=== PATIENT | male | born 1965 | race Caucasian/White ===

== ENCOUNTER 2018-05-21 04:15 | Emergency (ER) | payer SELFPAY, OTHER ==
[2018-05-21] MEDS: HYDROCODONE/APAP (10/325) TAB PO (04:36)
[2018-05-21] MEDS: ONDANSETRON (ODT) 4 MG TAB ODT (04:36)
[2018-05-21] MEDS: ONDANSETRON 4 MG INJ IV (05:10)
[2018-05-21] MEDS: HYDROmorphONE 1 MG/ML SYG IV (05:10)
== END 2018-05-21 05:54 | disposition home or self-care (01) ==
LOC: E/R 04:15
DX: S43.005A Unspecified dislocation of left shoulder joint, initial encounter (principal); X58.XXXA Exposure to other specified factors, initial encounter; Y92.9 Unspecified place or not applicable
CPT/HCPCS: 23650; 73030; 96374; 96375; 99284-25